=== PATIENT | female | born 1950 | race African-American/Black ===

== ENCOUNTER 2020-02-09 18:30 | Emergency (ER) | payer MEDICARE, MEDICAID ==
[2020-02-09 19:19] LABS: ABSOLUTE BASOPHILS # (AUTO) 0.1 10^3/uL (0.0-0.2); ABSOLUTE EOSINOPHILS # (AUTO) 0.1 10^3/uL (0.0-0.6); ABSOLUTE LYMPHOCYTES (AUTO) 2.6 10^3/uL (0.5-4.7); ABSOLUTE MONOCYTES (AUTO) 0.6 10^3/uL (0.1-1.4); ABSOLUTE NEUT (AUTO) 2.2 10^3/uL (1.7-8.2); EOSINOPHILS % (AUTO) 1.3 % (0-6); HEMATOCRIT 34.6 % (36.0-47.0); HEMOGLOBIN 11.3 g/dL (12.0-15.5); MEAN CORPUSCULAR HEMOGLOBIN 27.6 pg (27.0-33.4); MEAN CORPUSCULAR HGB CONC 32.6 g/dL (32.0-36.0); MEAN CORPUSCULAR VOLUME 85 fl (80-97); MONOCYTES % (AUTO) 11.2 % (3-13); PLATELET COUNT 248 10^3/uL (150-450); RED BLOOD COUNT 4.08 10^6/uL (3.72-5.28); RED CELL DISTRIBUTION WIDTH 13.6 % (11.5-14.0); SEGMENTED NEUTROPHILS % (AUTO) 39.5 % (42-78); TOTAL CELLS COUNTED % (AUTO) 100 %; WHITE BLOOD COUNT 5.5 10^3/uL (4.0-10.5)
[2020-02-09 19:24] LABS: INTERNATIONAL RATION (INR) 0.96; PROTHROMBIN TIME 12.8 SEC (11.4-15.4)
[2020-02-09 19:35] LABS: ALBUMIN 3.6 g/dL (3.5-5.0); ALKALINE PHOSPHATASE 47 U/L (38-126); ANION GAP 7 (5-19); ASPARTATE AMINO TRANSFERASE 19 U/L (14-36); BILIRUBIN,TOTAL 0.5 mg/dL (0.2-1.3); BLOOD UREA NITROGEN 14 mg/dL (7-20); CARBON DIOXIDE 29 mmol/L (22-30); CHLORIDE 107 mmol/L (98-107); GLUCOSE 107 mg/dL (75-110); POTASSIUM 3.8 mmol/L (3.6-5.0); TOTAL PROTEIN 6.5 g/dL (6.3-8.2)
--- NOTE | 2020-02-09 20:38 | ER Document Report ---
Entered by WHITNEY DRISCOLL SCRIBE 02/09/[id number] Acting as scribe for:SERGO CONRAD DO ED General - General Chief Complaint: Fainting Stated Complaint: DIZZY/SYNCOPAL EPISODE Time Seen by Provider: 02/09/20 19:13 Primary Care Provider: DONNA GUO MD [ACTIVE STAFF] - Follow up as needed Information source: Patient Notes: This 69-year-old female with a history of constipation, HTN and GERD presents with daughter to the emergency department via EMS complaining of a syncope episode about two hours ago. Patient's explains that she is visiting her daughter and is originally from [place]. Patient states that she felt well this morning. Patient explains that when she went to the bathroom she felt constipated was not able to have a bowel movement. Patient states that after pulling up her pants, she went to take a step and passed out, falling to the taryn or. Patient's daughter said that she heard a thud, opened the bathroom door and when she saw the patient she called EMS. EMS reported that patient's blood pressure was low initially and patient would stare off. Patient states that she feels at baseline now. Patient denies chest pain, shortness of breath and and cold symptoms in the past few days. Patient has had a normal bowel movement since in the emergency department. Patient mentions that she was admitted to a hospital in [place] for syncope episodes and was hospitalized for three days. Patient reports that she was told on discharge that "her heart was fine and that everything looked okay". Patient's daughter states that distantly patient had a stroke and has mild right-sided weakness. - Related Data Home Medications: Pt unable to recall home medications Past Medical History - General Information source: Patient - Social History Smoking Status: Current Every Day Smoker Cigarette use (# per day): Yes Chew tobacco use (# tins/day): No Family History: Reviewed & Not Pertinent Patient has suicidal ideation: No Patient has homicidal ideation: No - Past Medical History Cardiac Medical History: Reports: Hx Hypercholesterolemia, Hx Hypertension GI Medical History: Reports: Hx Gastroesophageal Reflux Disease Surgical Hx: Negative Review of Systems - Review of Systems Constitutional: No symptoms reported EENT: No symptoms reported Cardiovascular: See HPI, Syncope. denies: Chest pain Respiratory: See HPI. denies: Short of breath Gastrointestinal: No symptoms reported Genitourinary: No symptoms reported Female Genitourinary: No symptoms reported Musculoskeletal: No symptoms reported Skin: No symptoms reported Hematologic/Lymphatic: No symptoms reported Neurological/Psychological: No symptoms reported -: Yes All other systems reviewed and negative Physical Exam - Vital signs Vitals: Resp Pulse Ox 19 100 02/09/20 18:57 02/09/20 18:57 - Notes Notes: Physical Exam: General: Alert, appears well. HEENT: Normocephalic. Atraumatic. PERRL. Extraocular movements intact. Oropharynx clear. Neck: Supple. Non-tender. Respiratory: No respiratory distress. Clear and equal breath sounds bilaterally. Cardiovascular: Regular rate and rhythm. Abdominal: Normal Inspection. Non-tender. No distension. Normal Bowel Sounds. Back: No gross abnormalities. Extremities: Moves all four extremities. Upper extremities: Normal inspection. Normal ROM. Lower extremities: Normal inspection. No edema. Normal ROM. Neurological: Normal cognition. AAOx4. Normal speech. Psychological: Normal affect. Normal Mood. Skin: Warm. Dry. Normal color. Course - Re-evaluation Re-evalutation: 02/09/20 23:39 MDM 69 year old female with likely vasovagal episode today at home. Traveling and here from [place]. She has htn, cvd and hld. After trying to have a bowel movement unsuccesfully she passed out briefly. Some lightheadedness but no chest pain or sob. No known heart disease. She had syncope with an admission in the last year in [place] and reportedly a 3 day stay with no bad disease process uncovered. Her workup here is reassuring. I discussed local follow up and her mild anemia and she and her daughter expressed understanding. We also discussed smoking cessation. She has no symptoms consistent with pe - no chest discomfort or tightness and no sob. Additionally vital signs are not supportive of this, although it was considered. - Vital Signs Vital signs: Temp Pulse Resp BP Pulse Ox 98.6 F 64 13 131/63 H 99 02/10/20 00:21 02/09/20 23:08 02/10/20 00:22 02/10/20 00:22 02/10/20 00:22 - Laboratory Result Diagrams: 02/09/20 18:55 02/09/20 18:55 Laboratory results interpreted by me: 02/09/20 18:55 Hgb 11.3 L Hct 34.6 L Lymph % (Auto) 47.0 H Seg Neutrophils % 39.5 L - Diagnostic Test Radiology reviewed: Reports reviewed - EKG Interpretation by Me EKG shows normal: Sinus rhythm Rate: Normal Rhythm: NSR Voltage: Consistant with LVH - NSR Nl Arion [address] elevation or depression repolarization abnormality my interpretation. Discharge - Discharge Clinical Impression: Tobacco abuse Syncope Qualifiers: Syncope type: vasovagal syncope Qualified Code(s): R55 - Syncope and collapse Anemia Qualifiers: Anemia type: other cause Other causes of anemia: other cause, not classified Qualified Code(s): D64.89 - Other specified anemias Constipation Qualifiers: Constipation type: unspecified constipation type Qualified Code(s): K59.00 - Constipation, unspecified Condition: Good Disposition: HOME, SELF-CARE Instructions: Near Syncopal Episode ([facility]), Syncopal Episode ([facility]) Additional Instructions: See Dr. Guo in follow up. Rest, please return here for chest pain, shortness of breath or any other problems or concerns. Prescriptions: Polyethylene Glycol 3350 [Miralax Powder 17 gm/Packet] 17 gm PO DAILY #7 [email or web address] Forms: Smoking Cessation Education Referrals: DONNA GUO MD [ACTIVE STAFF] - Follow up as needed I personally performed the services described in the documentation, reviewed and edited the documentation which was dictated to the scribe in my presence, and it accurately records my words and actions.
--- NOTE | 2020-02-09 20:51 | RADIOLOGY REPORT (SQ) ---
EXAM DESCRIPTION: CT HEAD WITHOUT IV CONTRAST COMPLETED DATE/TME: 02/09/2020 20:14 CLINICAL HISTORY: 69 years, Female, dizziness EXAM DESCRIPTION: CLINICAL HISTORY: dizziness COMPARISON: None Available TECHNIQUE: Contiguous axial CT images of the head were obtained. Coronal and sagittal reconstructions were created from the axial data. This exam was performed according to our departmental dose-optimization program, which includes automated exposure control, adjustment of the mA and/or kV according to patient size and/or use of iterative reconstruction technique. FINDINGS: Low-attenuation lesions are likely lacunar infarcts involving the basal ganglia bilaterally and the right internal capsule. There is no evidence of acute mass, mass effect, midline shift or hemorrhage. The ventricles and extra-axial CSF spaces are unremarkable. The brain parenchyma appears otherwise normal for the patient's age. No acute abnormalities of the bones is seen. IMPRESSION: No acute intracranial abnormality.
--- NOTE | 2020-02-09 20:54 | RADIOLOGY REPORT (SQ) ---
EXAM DESCRIPTION: XR CHEST 1 VIEW COMPLETED DATE/TME: 02/09/2020 20:15 CLINICAL HISTORY: 69 years, Female, htn COMPARISON: None. NUMBER OF VIEWS: One TECHNIQUE: Single frontal view of the chest was obtained portably LIMITATIONS: None. FINDINGS: Cardiac and mediastinal contours are normal. Lungs are clear. No pleural effusion or pneumothorax. IMPRESSION: No acute disease. copyright 2010 [employer]- All Rights Reserved
--- NOTE | 2020-02-09 21:43 | EKG REPORT ---
SEVERITY:- BORDERLINE ECG - SINUS RHYTHM BORDERLINE T WAVE ABNORMALITIES : Confirmed by: Mora Ray MD 09-Feb-2020 21:42:45
[2020-02-10 00:26] VITALS: BP 131/63
== END 2020-02-10 00:42 | disposition home or self-care (01) ==
LOC: ER 18:30
DX: K59.00 Constipation, unspecified (principal); D64.89 Other specified anemias; R55 Syncope and collapse; R42 Dizziness and giddiness; R53.1 Weakness; I10 Essential (primary) hypertension; Z86.73 Personal history of transient ischemic attack (TIA), and cerebral infarction without residual deficits; F17.210 Nicotine dependence, cigarettes, uncomplicated
CPT/HCPCS: 36415; 70450; 71045; 80053; 84443; 84484; 85025; 85610; 93005; 93010; 99285